=== PATIENT | female | born 1980 | race African-American/Black ===

== ENCOUNTER 2020-10-10 12:53 | Emergency (ER) | payer BC ==
[2020-10-10] MEDS ORDERED: Acetaminophen/HYDROcodone 325-5 MG Tab PO ONE (12:54)
--- NOTE | 2020-10-10 13:24 | EDM.PDOC ---
ED HPI GENERAL MEDICAL PROBLEM - General Chief Complaint: Back Pain or Injury Stated Complaint: BACK PAIN Time Seen by Provider: 10/10/20 13:20 Source of Information: Reports: Patient History Limitations: Reports: No Limitations - History of Present Illness INITIAL COMMENTS - FREE TEXT/NARRATIVE: Patient slipped and fell on 10/08/20. She began to experience low back pain the next day. There was no pain immediately after the fall. She has had no relief with Ibuprofen. Denies prior h/o HTN. She has had a prior tubal ligation and has not been sexually active for 2 years. Denies numbness, tingling, or loss of bowel or bladder control. Also denies chest pain or headache. 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 Lower Back Pain Score (Numeric/FACES): 9 - Related Data Allergies Allergy/AdvReac Type Severity Reaction Status Date / Time cyclobenzaprine Allergy Hives Verified 10/10/20 13:35 [From Flexeril] Home Meds: Home Meds Baclofen 10 mg PO TID PRN #30 tablet 10/10/20 [Rx] Magnesium Oxide 400 mg PO DAILY #15 tab 10/10/20 [Rx] Potassium Chloride 20 meq PO DAILY #30 tablet.er 10/10/20 [Rx] hydroCHLOROthiazide [Hydrochlorothiazide] 25 mg PO DAILY #30 tab 10/10/20 [Rx] Past Medical History Endocrine/Metabolic History: Reports: Other (See Below) (Morbid Obesity) ED ROS GENERAL - Review of Systems Review Of Systems: Comprehensive ROS is negative, except as noted in HPI. ED EXAM,LOWER BACK PAIN/INJURY - Physical Exam Exam: See Below Exam Limited By: No Limitations General Appearance: Alert, WD/WN, No Apparent Distress Head: Atraumatic, Normocephalic Respiratory/Chest: No Respiratory Distress, Lungs Clear, Normal Breath Sounds Cardiovascular: Regular Rate, Rhythm, No Murmur Back Exam: Vertebral Tenderness (lumbar) Extremities: Normal Range of Motion Neurological: Alert, No Motor/Sensory Deficits DTR - Lower Extremities: 2+: Knee (R), Knee (L) Skin Exam: Warm, Dry Course - Vital Signs Last Recorded V/S: Last Vital Signs Temp 36.6 C 10/10/20 12:59 Pulse 73 10/10/20 12:59 Resp 18 10/10/20 12:59 BP 222/101 H 10/10/20 14:49 Pulse Ox 100 10/10/20 12:59 - Orders/Labs/Meds Orders: Active Orders 24 hr Category Date Time Status Lumbar Spine 2 or 3V [CR] Stat Exams 10/10/20 13:19 Taken Labs: Laboratory Tests 10/10/20 10/10/20 10/10/20 Range/Units 13:25 13:25 13:25 WBC 8.4 (3.0-10.3) x10-3/uL RBC 4.03 (3.60-5.20) x10(6)uL Hgb 9.1 L (11.4-15.5) g/dL Hct 27.3 L (34.2-48.2) % MCV 67.9 L (76.7-100.5) fL MCH 22.5 L (23.9-33.9) pg MCHC 33.1 (31.9-34.8) g/dL RDW 18.8 H (12.3-16.5) % Plt Count 328 (151-488) x10(3)uL MPV 8.2 (7.1-12.4) fL Neut % (Auto) 60.9 (30.8-76.2) % Lymph % (Auto) 28.2 (18.4-52.1) % [place] % (Auto) 5.7 (4.4-15.7) % Eos % (Auto) 4.1 (0.6-8.1) % Baso % (Auto) 1.1 (0.2-1.5) % Neut # (Auto) 5.1 (1.5-6.3) x10-3/uL Lymph # (Auto) 2.4 (1.0-4.4) x10-3/uL [place] # (Auto) 0.5 (0.3-1.0) x10-3/uL Eos # (Auto) 0.3 (0.0-0.8) x10-3/uL Baso # (Auto) 0.1 (0.0-0.1) x10-3/uL Sodium 139 (135-145) mmol/L Potassium 3.2 L (3.5-5.3) mmol/L Chloride 101 (100-110) mmol/L Carbon Dioxide 29 (21-32) mmol/L BUN 18 (7-18) mg/dL Creatinine 1.3 H (0.55-1.02) mg/dL Est Cr Clr Drug Dosing 55.38 mL/min Estimated GFR (MDRD) 45 L (>60) BUN/Creatinine Ratio 13.8 (9-20) Glucose 166 H (80-116) mg/dL Calcium 8.3 L (8.6-10.2) mg/dL Magnesium 1.6 L (1.8-2.5) mg/dL Total Bilirubin 0.2 (0.1-1.3) mg/dL AST 15 (5-25) IU/L ALT 17 (12-36) U/L Alkaline Phosphatase 92 (56-112) IU/L Total Protein 7.4 (6.0-8.0) g/dL Albumin 3.4 L (3.5-5.2) g/dL Globulin 4.0 g/dL Albumin/Globulin Ratio 0.9 Meds: Medications Discontinued Medications Generic Name Dose Route Start Last Admin Trade Name Freq PRN Reason Stop Dose Admin Clonidine HCl 0.2 mg 10/10/20 14:11 10/10/20 14:14 Catapres PO 10/10/20 14:12 0.2 mg ONETIME ONE Administration Hydrochlorothiazide 25 mg 10/10/20 14:17 10/10/20 14:29 Hydrochlorothiazide PO 10/10/20 14:18 25 mg ONETIME ONE Administration Potassium Chloride 40 meq 10/10/20 14:18 10/10/20 14:29 Klor-Con M20 PO 10/10/20 14:19 40 meq ONETIME ONE Administration - Radiology Interpretation Free Text/Narrative:: L-spine Xray: No fracture or subluxation. (ED provider interpretation) - Re-Assessments/Exams Free Text/Narrative Re-Assessment/Exam: 10/10/20 15:20 BP 226/109 after Clonidine 0.2mg PO. Patient given HCTZ 25mg PO. Departure - Departure Time of Disposition: 15:23 Disposition: Home, Self-Care 01 Condition: Good Clinical Impression: Hypertension Qualifiers: Hypertension type: essential hypertension Qualified Code(s): I10 - Essential (primary) hypertension Lumbago Qualifiers: Chronicity: acute Back pain laterality: midline Sciatica presence: without sciatica Qualified Code(s): M54.5 - Low back pain - Discharge Information *PRESCRIPTION DRUG MONITORING PROGRAM REVIEWED*: Yes *COPY OF PRESCRIPTION DRUG MONITORING REPORT IN PATIENT CLIFF: No Prescriptions: Baclofen 10 mg PO TID PRN #30 tablet PRN Reason: Muscle Spasm hydroCHLOROthiazide [Hydrochlorothiazide] 25 mg PO DAILY #30 tab Magnesium Oxide 400 mg PO DAILY #15 tab Potassium Chloride 20 meq PO DAILY #30 tablet.er Instructions: Acute Back Pain, Adult, Hypertension, Adult, [id number] Referrals: Nahomy Browne NP [Physician] - 2 Days Forms: ED Department Discharge Additional Instructions: Fill the prescriptions for Baclofen, Hydrochlorothiazide, Potassium, and Magnesium at [facility] and take as directed. You may take Ibuprofen in addition to the [place]. Rest. Eat a low sodium diet. Exercise regularly. Follow up with a Primary PHysician in 2 days. Return to the ER as needed. Sepsis Event Note (ED) - Focused Exam Vital Signs: Vital Signs Temp Pulse Resp BP BP BP Pulse Ox 10/10/20 14:49 222/101 H 10/10/20 14:14 230/101 H 10/10/20 13:45 230/101 H 10/10/20 12:59 36.6 C 73 18 235/118 H 100 - My Orders Last 24 Hours: My Active Orders 10/10/20 13:19 Lumbar Spine 2 or 3V [CR] Stat - Assessment/Plan Last 24 Hours: My Active Orders 10/10/20 13:19 Lumbar Spine 2 or 3V [CR] Stat
[2020-10-10] MEDS ORDERED: cloNIDine 0.1 MG Tab PO ONE (14:11)
[2020-10-10] MEDS ORDERED: Hydrochlorothiazide 25 MG Tab PO ONE (14:17)
[2020-10-10] MEDS ORDERED: Potassium Chloride 20 MEQ Tab.ER PO ONE (14:18)
[2020-10-10] MEDS ORDERED: Baclofen 10 MG Tab PO ONE (15:21)
--- NOTE | 2020-10-11 10:30 | CR ---
INDICATION: Back injury, pain down right leg. LUMBAR SPINE: Three views of the lumbosacral spine were obtained 10/10/20 and revealed sacroiliac joints to appear intact. Vertebral body and disk heights were maintained. Pedicles appear to be intact. Relatively minimal degenerative changes are noted mostly at the thoracolumbar spine. Bone density appeared to be normal. IMPRESSION: Essentially normal lumbosacral spine. MTDD
== END 2020-10-10 15:50 | disposition home or self-care (01) ==
LOC: FB.ED 12:53
DX: M54.5 Low back pain (principal); I10 Essential (primary) hypertension; D50.9 Iron deficiency anemia, unspecified; E66.01 Morbid (severe) obesity due to excess calories; Z68.41 Body mass index [BMI] 40.0-44.9, adult; Z88.8 Allergy status to other drugs, medicaments and biological substances; Z79.899 Other long term (current) drug therapy
CPT/HCPCS: 36415; 72100; 80053; 83735; 85025; 99283; A9270-GY